=== PATIENT | female | born 1995 | race Caucasian/White ===

== ENCOUNTER 2018-03-22 22:31 | Emergency (ER) | payer BC, OTHER ==
[~2018-03-22] VITALS: Ht 162.6 cm; Wt 49.4 kg
[2018-03-22] MEDS ORDERED: MACROBID100 MG ORAL (22:45)
[2018-03-22 22:46] VITALS: BP 102/69
[2018-03-22] MEDS ORDERED: LIDODERM700 M1 TOPIC (23:23)
[2018-03-22] MEDS ORDERED: ROBAXIN-750750 MG PO (23:23)
[2018-03-22] MEDS ORDERED: TYLENOL EXTRA500 MG ORAL (23:23)
[2018-03-22] MEDS ORDERED: Acetaminophen 500mg (ES) tab ORAL ONE (23:30)
[2018-03-22] MEDS ORDERED: Methocarbamol 750mg tab ORAL ONE (23:30)
[2018-03-22 23:44] VITALS: BP 102/69
--- NOTE | 2018-03-23 01:00 | Emergency Room Report ---
History of Present Illness General Chief Complaint: Back Pain-No Injury Source: Patient Present Illness HPI 22 yo F presents to ED c/o lower back pain x 1 month. 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 denies any fall or other injury. pain is dull 6/10, nonradiating. denies flank pain. denies fevers or chills. denies bowel or bladder incontinence. denies any leg or motor weakness Allergies: Coded Allergies: No Known Allergies (Unverified , 03/22/18) Patient History Past Medical History: none Past Surgical History: none Pertinent Family History: none Social History: Denies: smoking, alcohol use, drug use Last Menstrual Period: mar 07 Now: No Immunizations: UTD Reviewed Nursing Documentation: PMH: Agreed; PSxH: Agreed Nursing Documentation-PMH Past Medical History: No Stated History Review of Systems All Other Systems: negative except mentioned in HPI Physical Exam Vital Signs Date Time Temp Pulse Resp B/P (MAP) Pulse Ox O2 Delivery O2 Flow Rate FiO2 03/22/18 22:41 98.2 74 16 102/69 99 Room Air Sp02 EP Interpretation: reviewed, normal General Appearance: no apparent distress, alert, GCS 15, non-toxic Head: normocephalic Eyes: bilateral eye normal inspection, bilateral eye PERRL ENT: normal ENT inspection Neck: normal inspection Respiratory: normal inspection Cardiovascular #1: normal inspection Gastrointestinal: normal inspection Rectal: deferred Genitourinary: no CVA tenderness, no vertebral tenderness Musculoskeletal: tender - paraspinal lumbar tenderness Neurologic: alert, oriented x3, responsive, motor strength/tone normal, sensory intact, speech normal Psychiatric: normal inspection Skin: normal inspection Lymphatic: normal inspection Medical Decision Making Diagnostic Impression: Primary Impression: Back pain Qualified Codes: M54.5 - Low back pain ER Course Hospital Course 22-year-old female presents ED complaining of lower back pain. No evidence of trauma Differential diagnoses include: pyelonephritis, kidney stone, muscle strain, Lspine fracture Clinical course Patient placed on stretcher. After initial history, physical exam reveals a young female in no acute distress. there is no vertebral body tenderness. No CVA tenderness. There is some paraspinal tenderness bilaterally. Negative straight leg raise. 5 out of 5 motor strength in both legs. Consistent with muscular pain. No imaging required. Patient agrees. Given Tylenol, Robaxin, Lidoderm patch air with pain improved. Safe for discharge close outpatient follow-up Diagnosis - back pain Stable and discharged to home with prescription for tylenol, robaxin, lidoderm. Followup with PMD. Return to ED if symptoms recur or worsen Last Vital Signs Date Time Temp Pulse Resp B/P (MAP) Pulse Ox O2 Delivery O2 Flow Rate FiO2 03/22/18 23:44 98.2 70 16 102/69 99 Room Air Status: improved Disposition: HOME, SELF-CARE Condition: Stable Scripts Lidocaine (Lidoderm) 1 Each Adh..patch 1 PATCH TOPIC DAILY, #7 PATCH 0 Refills Patch(es) may remain in place for up to 12 hours in any 24-hour period. Prov: Desmond Crowley MD 03/22/18 Methocarbamol* (ROBAXIN-750*) 750 Mg Tablet 750 MG PO TID, #21 TAB 0 Refills Prov: Desmond Crowley MD 03/22/18 Acetaminophen* (TYLENOL EXTRA STRENGTH*) 500 Mg Tablet 500 MG ORAL Q8H PRN for Prn Headache/Temp > 101, #30 TAB 0 Refills Prov: Desmond Crowley MD 03/22/18 Referrals: NOT CHOSEN [facility],REFERRING Departure Forms: Return to Work Return to Work Date: Mar 27, 2018 Work Restrictions: No Heavy Lifting Other Restrictions: cannot wear corset Patient Instructions: Back Pain, Adult Desmond Crowley MD Mar 23, 2018 01:00
== END 2018-03-22 23:45 | disposition home or self-care (01) ==
LOC: EMR 23:12
DX: M54.5 Low back pain (principal)
CPT/HCPCS: 99283

== ENCOUNTER 2018-05-28 20:13 | Emergency (ER) | payer OTHER ==
[~2018-05-28] VITALS: Ht 162.6 cm; Wt 49.9 kg
[~2018-05-28 20:13] MED LIST: LIDODERM700 M1 TOPIC; MACROBID100 MG ORAL; ROBAXIN-750750 MG PO; TYLENOL EXTRA500 MG ORAL
[2018-05-28] MEDS ORDERED: NKM (20:19)
--- NOTE | 2018-05-28 20:25 | NUR ---
ED Nurse Note: Patient walk in c/o right foot pain for 1 hour. Patient states she was moving a door and dropped it on her foot. pt complaining of 7/10 pain on right foot. noted with minimal bleeding and bluish discoloration. pt denies taking any medication prior to ed visit.
[2018-05-28] MEDS ORDERED: Acetaminophen 500mg (ES) tab ORAL ONE ×2 (20:39→20:45)
[2018-05-28] MEDS ORDERED: Bacitracin Oint UD TOPIC ONE (21:00)
[2018-05-28] MEDS ORDERED: NORCO 5-325 TA1 EACH ORAL (21:02)
[2018-05-28 21:06] VITALS: BP 127/78
--- NOTE | 2018-05-28 21:06 | NUR ---
ED Nurse Note: pt cleared to d/c per ER provider, pt d/c instruction and prescription provided per ER Provider, pt education done via discussion and hand out, pt advised to follow up with pcp to continue care, pt verbalized understanding and agrees with plan, wristband removed. pt vss, ambulatory w/ steady gait. all belongings left w/ pt.
--- NOTE | 2018-05-29 12:27 | Diagnostic Imaging Report ---
Indication: Foot Pain Comparison: None Findings: 3 views of the right foot were obtained. There is a suspected nondisplaced fracture of the fifth middle phalange. The fifth DIP joint appears to be fused. IMPRESSION: Acute fracture of the fifth middle phalange suspected.
--- NOTE | 2018-05-31 14:11 | Emergency Room Report ---
History of Present Illness General Chief Complaint: Lower Extremity Injury Source: Patient Present Illness HPI Patient is a 22-year-old female presented after increased lower extremity pain. Patient reports having injury approximately 1 hour prior to arrival. Patient had reportedly dropped a wooden door on her foot. She reports of increased pain to the small toe. Patient reports having no other locations of pain. She had been ambulatory after the injury. Patient's tetanus vaccine is up-to-date. Allergies: Coded Allergies: No Known Allergies (Unverified , 03/22/18) Patient History Past Medical History: see triage record Last Menstrual Period: 05/10/2018 Now: No Reviewed Nursing Documentation: PMH: Agreed; PSxH: Agreed Nursing Documentation-PMH Past Medical History: No Stated History Review of Systems All Other Systems: negative except mentioned in HPI Physical Exam Vital Signs Date Time Temp Pulse Resp B/P (MAP) Pulse Ox O2 Delivery O2 Flow Rate FiO2 05/28/18 20:17 97.9 74 16 127/78 100 Room Air General Appearance: well appearing, no apparent distress, alert, GCS 15 Head: normocephalic, atraumatic ENT: hearing grossly normal, normal voice Neck: full range of motion, supple Respiratory: no respiratory distress, speaking full sentences Musculoskeletal: swelling - right small toe, no subungual hematoma Neurologic: normal inspection, alert, oriented x3, responsive, normal gait Psychiatric: mood/affect normal Skin: no rash Medical Decision Making Diagnostic Impression: Primary Impression: Toe fracture, right ER Course Patient presented for foot right foot pain. Differential diagnosis include was not limited to fracture, dislocation, contusion among others. X-ray imaging of the right foot showed nondisplaced fracture of the fifth distal phalanx. Patient placed in a bulky dressing. She is advised to keep her foot elevated. She is given prescription for pain medications. She was advised to follow-up with orthopedics. Last Vital Signs Date Time Temp Pulse Resp B/P (MAP) Pulse Ox O2 Delivery O2 Flow Rate FiO2 05/28/18 21:06 97.9 68 16 127/78 100 Room Air Status: improved Disposition: HOME, SELF-CARE Condition: Stable Scripts Hydrocodone Bit/Acetaminophen 5-325* (NORCO 5-325*) 1 Each Tablet 1 TAB ORAL Q6H PRN for For Pain, #20 TAB 0 Refills Prov: Ben Cruz MD 05/28/18 Referrals: [facility],REFERRING (PCP) Patient Instructions: Toe Fracture Ben Cruz MD May 31, 2018 14:11
== END 2018-05-28 22:42 | disposition home or self-care (01) ==
LOC: EMR 21:12
DX: S92.524A Nondisplaced fracture of middle phalanx of right lesser toe(s), initial encounter for closed fracture (principal); W20.8XXA Other cause of strike by thrown, projected or falling object, initial encounter; Y92.009 Unspecified place in unspecified non-institutional (private) residence as the place of occurrence of the external cause
CPT/HCPCS: 99283